=== PATIENT | male | born 1960 | race Caucasian/White ===

== ENCOUNTER 2019-04-19 12:22 | Inpatient (IN) | payer OTHER ==
[~2019-04-19] VITALS: Ht 170.2 cm; Wt 83.9 kg
[2019-04-19] MEDS ORDERED: ASPIRIN 81 MG TAB.CHEW PO ONE (13:00)
[2019-04-19] MEDS ORDERED: NITROGLYCERIN OINT 1 GM PACKET. TP ONE (13:00)
[2019-04-19 13:03] LABS: BASO % 1 % (0-3); EOS # 0.1 x10^3/uL (0.0-0.7); EOS % 2 % (0-3); HEMATOCRIT 46.7 % (39.0-53.0); HEMOGLOBIN 15.8 g/dL (13.0-17.5); LYMPH # 2.1 x10^3/uL (1.0-4.8); LYMPH % 34 % (24-48); MEAN CORPUSCULAR HEMOGLOBIN 31 pg (25-35); MEAN CORPUSCULAR HGB CONC 34 g/dL (31-37); MEAN CORPUSCULAR VOLUME 90 fL (79-100); MONO # 0.6 x10^3/uL (0.0-1.1); MONO % 9 % (0-9); NEUT # 3.3 x10^3uL (1.8-7.7); NEUT % 54 % (31-73); PLATELET COUNT 259 x10^3/uL (140-400); RED BLOOD COUNT 5.17 x10^6/uL (4.30-5.70); RED CELL DISTRIBUTION WIDTH 12.5 % (11.5-14.5); WHITE BLOOD COUNT 6.1 x10^3/uL (4.0-11.0)
--- NOTE | 2019-04-19 13:07 | PHYS DOC ---
Past History Past Medical History: High Cholesterol, Hypertension Past Surgical History: Tonsillectomy Additional Past Surgical Histo: left rotator cuff surgery Smoking: Non-smoker Alcohol Use: None Drug Use: None Adult General Chief Complaint Chief Complaint: CHEST PAIN HPI HPI Patient is a 59-year-old male who presents to the emergency department for evaluation. He states at about 8 AM this morning he began expressing some left- sided chest pain, described as a pressure, which has been constant since onset. The pain does not radiate, and is not exacerbated or alleviated by anything in particular. He has not had any exertional chest pain, pleuritic pain, nausea, vo miting, or diaphoresis. Risk factors include hypertension, hyperlipidemia, and a family history, his father had bypass surgery in his 50s. The patient's HEART score would be a 5, assuming a negative troponin. Review of Systems Review of Systems Constitutional: Denies fever or chills [] Eyes: Denies change in visual acuity, redness, or eye pain [] HENT: Denies nasal congestion or sore throat [] Respiratory: Denies cough or shortness of breath [] Cardiovascular: No additional information not addressed in HPI [] GI: Denies abdominal pain, nausea, vomiting, bloody stools or diarrhea [] : Denies dysuria or hematuria [] Musculoskeletal: Denies back pain or joint pain [] Integument: Denies rash or skin lesions [] Neurologic: Denies headache, focal weakness or sensory changes [] Endocrine: Denies polyuria or polydipsia [] All other systems were reviewed and found to be within normal limits, except as documented in this note. Current Medications Current Medications Current Medications Medications (Trade) Dose Ordered Sig/Rylie Start Time Stop Time Status Last Admin Dose Admin Aspirin (Children'S Aspirin) 324 mg 1X ONCE 04/19/19 13:00 04/19/19 13:01 DC Nitroglycerin (Nitro-Bid Oint) 1 inch 1X ONCE 04/19/19 13:00 04/19/19 13:01 DC Allergies Allergies Allergies Coded Allergies Type Severity Reaction Last Updated Verified No Known Drug Allergies 04/19/19 No Physical Exam Physical Exam PHYSICAL EXAM: CONSTITUTIONAL: Well developed, well nourished HEAD: normocephalic, atraumatic EENT: PERRL, EOMI. Conjunctivae normal color, sclerae non-icteric; moist mucous membranes. NECK: Supple, non-tender; no meningismus. LUNGS: Lungs CTA, breathing even and unlabored. Normal air movement. HEART: Regular rate and rhythm, no murmur CHEST: No deformity; non-tender ABDOMEN: The abdomen is soft, and non-tender, no masses or bruits. EXTREM: Normal ROM; no deformity, no calf tenderness. Normal pulses palpable in all extremities. There is no pedal edema. SKIN: No rash; no diaphoresis NEURO: Alert; normal speech and cognition; CN's grossly intact; strength grossly intact without focal deficit. BACK: No CVA TTP. Current Patient Data Vital Signs Vital Signs Date Time Temp Pulse Resp B/P (MAP) Pulse Ox O2 Delivery O2 Flow Rate FiO2 04/19/19 13:00 67 18 141/85 (103) 96 Room Air 04/19/19 12:29 98.6 Lab Results Laboratory Tests Test 04/19/19 12:30 White Blood Count 6.1 x10^3/uL Red Blood Count 5.17 x10^6/uL Hemoglobin 15.8 g/dL Hematocrit 46.7 % Mean Corpuscular Volume 90 fL Mean Corpuscular Hemoglobin 31 pg Mean Corpuscular Hemoglobin Concent 34 g/dL Red Cell Distribution Width 12.5 % Platelet Count 259 x10^3/uL Neutrophils (%) (Auto) 54 % Lymphocytes (%) (Auto) 34 % Monocytes (%) (Auto) 9 % Eosinophils (%) (Auto) 2 % Basophils (%) (Auto) 1 % Neutrophils # (Auto) 3.3 x10^3uL Lymphocytes # (Auto) 2.1 x10^3/uL Monocytes # (Auto) 0.6 x10^3/uL Eosinophils # (Auto) 0.1 x10^3/uL Basophils # (Auto) 0.0 x10^3/uL D-Dimer (Aylin) 0.62 mg/L Sodium Level 143 mmol/L Potassium Level 4.1 mmol/L Chloride Level 105 mmol/L Carbon Dioxide Level 28 mmol/L Anion Gap 10 Blood Urea Nitrogen 12 mg/dL Creatinine 1.1 mg/dL Estimated GFR (Cockcroft-Gault) 69.0 BUN/Creatinine Ratio 11 Glucose Level 88 mg/dL Calcium Level 9.1 mg/dL Total Bilirubin 0.5 mg/dL Aspartate Amino Transf (AST/SGOT) 22 U/L Alanine Aminotransferase (ALT/SGPT) 44 U/L Alkaline Phosphatase 59 U/L Troponin I Quantitative < 0.017 ng/mL [id number] Natriuretic Peptide 14 pg/mL Total Protein 7.6 g/dL Albumin 4.0 g/dL Albumin/Globulin Ratio 1.1 Current Medications Medications (Trade) Dose Ordered Sig/Rylie Route PRN Reason Start Time Stop Time Status Last Admin Dose Admin Nitroglycerin (Nitro-Bid Oint) 1 inch 1X ONCE TP 04/19/19 13:00 04/19/19 13:01 DC 04/19/19 13:00 Aspirin (Children'S Aspirin) 324 mg 1X ONCE PO 04/19/19 13:00 04/19/19 13:01 DC 04/19/19 13:00 EKG EKG Normal sinus rhythm a rate of 66 beats for minute, normal axis, normal intervals, nonspecific ST/T changes are present.[] [] Radiology/Procedures Radiology/Procedures PROCEDURE: CHEST PA & LATERAL EXAM: Chest, 2 views. HISTORY: Chest pain. COMPARISON: None. FINDINGS: 2 views of the chest are obtained. There is no infiltrate, pleural effusion or pneumothorax. The heart is normal in size. IMPRESSION: No acute pulmonary finding. PROCEDURE: CT ANGIOGRAPHY CHEST CTA OF THE CHEST WITH AND WITHOUT CONTRAST Clinical indications: Chest pain. Elevated d-dimer. Technique: Noncontrast axial localizer was performed. After IV infusion of 75 cc of Omnipaque 300, helical CT scanning of the chest was performed using the CT pulmonary embolism protocol. A coronal MIP reconstruction was generated. PQRS compliance Statement One or more of the following individualized dose reduction techniques were utilized for this study: 1. Automated exposure control 2. Adjustment of the mA and/or kV according to patient size 3. Use of iterative reconstruction technique Comparison: None available. Findings: No pulmonary embolism is evident. No focal aneurysmal dilatation of the thoracic aorta is seen. The heart size and normal and no pericardial effusion is seen. No enlarged thoracic lymphadenopathy is evident. No adrenal mass is seen. There is mild groundglass lung infiltrates bilaterally consistent with atelectasis given the decreased lung volumes and elevation of both hemidiaphragms. There is a nodule of the medial posterior costophrenic angle on the left side which measures 14 mm in size. There is a question of some punctate calcification within it. Therefore, this may represent a granuloma. However this is not certain. Therefore a short-term follow-up chest CT in 3 months will be needed. No lung consolidation is evident. No pleural effusion or pneumothorax is seen. The proximal bronchial tree is patent. No lytic process is seen. No fracture is evident. IMPRESSION: 14 mm lung nodule within the posterior medial costophrenic angle on the left side. Recommend a follow-up chest CT in 3 months. No pulmonary embolism. Course & Med Decision Making Course & Med Decision Making Pertinent Labs and Imaging studies reviewed. (See chart for details) []2:50 PM:The patient's condition remains stable. I spoke with the hospitalist, who accepted the patient to the hospital for further evaluation and treatment. Pt had improvement in pain with NTG. Also discussed importance of outpatient CT f/u and findings, per radiologist recommendation. Dragon Disclaimer Dragon Disclaimer This electronic medical record was generated, in whole or in part, using a voice recognition dictation system. Departure Departure: Impression: Primary Impression: Chest pain Disposition: ADMITTED INPATIENT Admitting Physician: Xioa Worthington Condition: STABLE MIS COHEN MD Apr 19, 2019 13:07
[2019-04-19 13:15] LABS: ALBUMIN/GLOBULIN RATIO 1.1 (1.0-1.7); CALCIUM 9.1 mg/dL (8.5-10.1); CREATININE 1.1 mg/dL (0.7-1.3); POTASSIUM 4.1 mmol/L (3.5-5.1); TOTAL BILIRUBIN 0.5 mg/dL (0.2-1.0); TOTAL PROTEIN 7.6 g/dL (6.4-8.2)
--- NOTE | 2019-04-19 13:16 | RAD ---
EXAM: Chest, 2 views. HISTORY: Chest pain. COMPARISON: None. FINDINGS: 2 views of the chest are obtained. There is no infiltrate, pleural effusion or pneumothorax. The heart is normal in size. IMPRESSION: No acute pulmonary finding. Electronically signed by: Mitzi Vela MD (04/19/2019 1:13 PM) [place] [id number]
[2019-04-19] MEDS ORDERED: IOHEXOL 300 MG/ML 75 ML VIAL. IV ONE (13:45)
--- NOTE | 2019-04-19 14:46 | RAD ---
CTA OF THE CHEST WITH AND WITHOUT CONTRAST Clinical indications: Chest pain. Elevated d-dimer. Technique: Noncontrast axial localizer was performed. After IV infusion of 75 cc of Omnipaque 300, helical CT scanning of the chest was performed using the CT pulmonary embolism protocol. A coronal MIP reconstruction was generated. PQRS compliance Statement One or more of the following individualized dose reduction techniques were utilized for this study: 1. Automated exposure control 2. Adjustment of the mA and/or kV according to patient size 3. Use of iterative reconstruction technique Comparison: None available. Findings: No pulmonary embolism is evident. No focal aneurysmal dilatation of the thoracic aorta is seen. The heart size and normal and no pericardial effusion is seen. No enlarged thoracic lymphadenopathy is evident. No adrenal mass is seen. There is mild groundglass lung infiltrates bilaterally consistent with atelectasis given the decreased lung volumes and elevation of both hemidiaphragms. There is a nodule of the medial posterior costophrenic angle on the left side which measures 14 mm in size. There is a question of some punctate calcification within it. Therefore, this may represent a granuloma. However this is not certain. Therefore a short-term follow-up chest CT in 3 months will be needed. No lung consolidation is evident. No pleural effusion or pneumothorax is seen. The proximal bronchial tree is patent. No lytic process is seen. No fracture is evident. IMPRESSION: 14 mm lung nodule within the posterior medial costophrenic angle on the left side. Recommend a follow-up chest CT in 3 months. No pulmonary embolism. Electronically signed by: Nghia Reese MD (04/19/2019 2:43 PM) [facility]
[2019-04-19 16:01] VITALS: BP 117/71
--- NOTE | 2019-04-19 16:19 | NUR ---
NSG NOTE; ADMISSION ADMIT TO ROOM 111 AT 1550 FROM ED VIA CART ACCOMP BY EMS PERSONNEL C/O LEFT CHEST PAIN SINCE 0800 TODAY-STATES NOW SLIGHTLY SORE SON WAS CALLED BY PT TO NOTIFY OF ADMISSION
[2019-04-19] MEDS ORDERED: SIMV40TA18 PO (16:46)
[2019-04-19] MEDS ORDERED: LISI-334 PO (16:46)
--- NOTE | 2019-04-19 17:50 | HP ---
ADMIT DATE: 04/19/2019 HISTORY OF PRESENT ILLNESS: The patient is a 59-year-old male patient who came to the Emergency Room with complaint of chest pain. He stated that his chest pain started around 8:00 a.m. this morning, mostly left-sided chest pain, described as a pressure, has been constant since onset. The pain does not radiate anywhere, not exacerbated or alleviated by anything. In particular, he has not had any exertional chest pain. Denied any nausea, vomiting, diaphoresis or shortness of breath. He apparently has had multiple risk factors for coronary artery disease and therefore he was admitted for further evaluation. His first set of cardiac enzyme was less than 0.017. The EKG also showed that he in sinus rhythm at a rate of 66 beats per minute, normal axis, normal intervals, nonspecific ST-T changes and therefore he was admitted to do 2 more sets of cardiac enzymes, check his fasting lipid profile and consult the cardiology team. PAST MEDICAL HISTORY: Significant for hypertension and hyperlipidemia. PAST SURGICAL HISTORY: Significant for left rotator cuff surgery, has also colonoscopy done 3 times with polypectomy. ALLERGIES: He has no known drug allergies. MEDICATIONS: He is currently on following medications: He is on simvastatin 40 mg at bedtime and lisinopril 20 mg once a day. FAMILY HISTORY: He has one sister older and apparently healthy. His father at the age of 67 because of stroke; however, he has had coronary artery bypass graft surgery in his 50s. His mother in her 50s because of breast cancer. SOCIAL HISTORY: , has 4 children, 1 son and his live with him. He never smoked, does not drink alcohol. 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 REVIEW OF SYSTEMS: The patient denied any blurring of vision, cataract, glaucoma or macular degeneration. Denied any earache, tinnitus or sensorineural deafness. Denied any nosebleeds, stuffy nose or postnasal drip. Denied any sore throat, sore tongue, toothache, hoarseness of voice or difficulty swallowing. PHYSICAL EXAMINATION: GENERAL: On examining him, he looked well and was clearly in no apparent respiratory distress. No pallor, jaundice, cyanosis or thyromegaly. No jugular venous distention. No limb edema. VITAL SIGNS: His heart rate was 63, blood pressure was 141/85, temperature was 98.6, respiratory rate was 18 and oxygen saturation was 97%. HEAD, EYES, EARS, NOSE AND THROAT: Showed normocephalic, atraumatic. NECK: Supple. HEART: Showed normal first and second heart sounds with no gallop, rub or murmur. CHEST: Clear to auscultation. No crepitation or rhonchi. ABDOMEN: Distended, soft, nontender. No guarding or rigidity. No organomegaly. All hernial orifice intact. Bowel sounds normal. NEUROLOGIC: He was awake, alert, responding appropriately. All cranial nerves intact. EXTREMITIES: He moves extremities without difficulty. LABORATORY DATA: His lab work on arrival showed a serum sodium 143, potassium 4.1, chloride 105, bicarbonate 28, anion gap of 10, BUN 12, creatinine 1.1, estimated GFR was 69 mL per minute. His glucose was 88, calcium was 9.1. Total bilirubin, AST, ALT, alkaline phosphatase were normal. His BNP was only 14, total protein was 7.6, albumin was 4. His first set of cardiac enzymes showed troponin to be less than 0.017. His white cell count was 6000, hemoglobin 15.8, hematocrit 46.7, MCV 90 and platelet count 259,000. His D-dimer was slightly elevated at 0.62. IMAGING STUDIES: His 2-view chest x-ray showed, there is no infiltrate, pleural effusion or pneumothorax. The heart is normal in size. CT angio of the chest showed that the patient has 14 mm lung nodule within the posterior medial costophrenic angle on the left side, but there is no pulmonary embolism is evident. No focal aneurysmal dilatation of thoracic aorta is seen. The heart size is normal. No pericardial effusion is seen. No enlarged thoracic lymphadenopathy is evident. No adrenal masses seen. There is mild ground glass lung infiltrates bilaterally consistent with atelectasis given the decreased lung volumes with elevation of both hemidiaphragms. PLAN: The patient was admitted to do 2 more sets of cardiac enzymes, check his fasting lipid profile, consult the Cardiology tomorrow. SCOTTY LARA MD DR: KYRA/dahlia JOB#: [id number] / [id number]
[2019-04-19 19:25] VITALS: BP 113/61
[2019-04-19] MEDS ORDERED: SIMVASTATIN 40 MG TABLET. PO SCH (21:00)
[2019-04-19] MEDS ORDERED: LISINOPRIL 20 MG TABLET PO SCH (21:00)
[2019-04-19 22:14] VITALS: BP 100/60
[2019-04-20 05:41] VITALS: BP 108/64
--- NOTE | 2019-04-20 08:19 | EKG ---
[address] [address] Test Date: 2019-04-19 Test Time: 12:31:41 Pat Name: LEWIS HO Department: Room: 111 A Gender: M Jockey Agent: : [id number] Requested By: MIS COHEN Order Number: [id number] Reading MD: Mike Lopez MD Measurements Intervals [place] Rate: 66 P: 38 SD: 140 QRS: 0 QRSD: 76 T: 18 QT: 356 QTc: 375 Interpretive Statements SINUS RHYTHM Electronically Signed On 04-20-2019 13:30:17 [employer] COMPUT[employer] CONSULTANT by Mike Lopez MD
[2019-04-20 11:00] VITALS: BP 134/83
[2019-04-20 13:12] LABS: THYROID STIM HORMONE (TSH) 1.848 uIU/mL (0.358-3.740)
--- NOTE | 2019-04-20 13:40 | NUR ---
PT cp has resolved. Talked with DR Walker today he will not be in until 5pm. He looked over chart and is ok with patient discharging if he does not want to wait. Dr Worthington will see patient and dc today. PT to follow up with cardiology next week and might have to get referral from [facility]. Breanna SENIOR SHAREPOINT DEVELOPER CMSRN [id number]-
--- NOTE | 2019-04-20 14:50 | NUR ---
pt dc to home. PT is able to verbalize understanding of dc instructions and follow up. PT to have OP stress test and echo in the office next week, PT to have follow up CT in 3 months. Latosha GROSS
--- NOTE | 2019-04-20 19:55 | DS ---
DATE OF DISCHARGE: 04/20/2019 HISTORY OF PRESENT ILLNESS: The patient is a 59-year-old male patient who was admitted with chest pain and the pain is mostly in the left side. The chest pain described as a pressure has been constant since onset. The pain does not radiate, not exacerbated or alleviated by anything. He denied any exertional chest pain, denied any nausea, vomiting, diaphoresis, shortness of breath. He apparently has multiple risk factors for coronary artery disease and therefore, he was admitted and has had 3 sets of cardiac enzyme, all were less than 0.017 and therefore, acute myocardial infarction was ruled out. His fasting lipid profile showed serum triglycerides to be 154, total cholesterol 191, LDL cholesterol 124, VLDL was 30, and HDL was 37, the ratio was 5. TSH was normal at 1.848 and therefore, a decision was made to discharge him home to follow with the Cardiology team as an outpatient for outpatient stress testing. PHYSICAL EXAMINATION: GENERAL: When I saw him this afternoon, he looked well and was clearly in no apparent respiratory distress. No pallor, jaundice, cyanosis or thyromegaly. No jugular venous distention. No limb edema. VITAL SIGNS: His heart rate was 53, blood pressure was 134/83, temperature was 98.2, respiratory rate was 18 and oxygen saturation was 98%. The rest of clinical exam is stable. ASSESSMENT: Chest pain, atypical, myocardial infarction ruled out. The patient has multiple risk factors for coronary artery disease including hypertension, hyperlipidemia. His father had coronary artery disease in his 50s. He was discharged to continue on his current medications and to follow with Cardiology team. SCOTTY LARA MD DR: KYRA/dahlia JOB#: [id number] / [id number]
== END 2019-04-20 15:00 | disposition home or self-care (01) | DRG 206 ==
LOC: ER 12:23 → 1 SOUTH 15:09
PROVIDERS: ADMIT Internal Medicine; ATTEND Internal Medicine
DX: M94.0 Chondrocostal junction syndrome [Tietze] (principal); E78.00 Pure hypercholesterolemia, unspecified; E78.5 Hyperlipidemia, unspecified; I10 Essential (primary) hypertension; Z80.3 Family history of malignant neoplasm of breast; Z82.3 Family history of stroke; Z82.49 Family history of ischemic heart disease and other diseases of the circulatory system; Z90.49 Acquired absence of other specified parts of digestive tract
CPT/HCPCS: 36415; 71046; 71275; 80053; 80061; 83880; 84443; 84484; 85025; 85379; 93005; Q9967; 99285-25

== ENCOUNTER → 2019-09-24 | Outpatient (CLI) | payer OTHER ==
[~2019-09-24] MED LIST: LISI-334 PO; SIMV40TA18 PO
--- NOTE | 2019-09-24 08:49 | RAD ---
CT CHEST WO CONTRAST Indication: Nodule Technique: Noncontrast CT imaging was performed of the chest, multiplanar reconstruction images submitted. One or more of the following individualized dose reduction techniques were utilized for this examination: 1. Automated exposure control 2. Adjustment of the mA and/or kV according to patient size 3. Use of iterative reconstruction technique. Comparison: April 19, 2019 Findings: There is again 13 mm left lower lobe nodule best seen images to 15 series 2 similar in size and morphology. There is again some questionable subtle internal calcification. No new lung nodularity, pleural pericardial fluid, pneumothorax, or infiltrate is identified. There is some coronary calcification. Thoracic aortic caliber is within normal limits. There is no abnormality of the thyroid gland. There are multiple small axillary nodes bilaterally as seen previously. Facet degenerative change contributes to fairly severe narrowing of the left T10-11 neural foramen. IMPRESSION: 1. There is stable left lower lobe pulmonary nodule, no new lung nodularity. 12 month follow-up is recommended as per revised Fleischner guidelines. 2. There is again some coronary calcification. Electronically signed by: Florentino Quigley MD (09/24/2019 8:46 AM) [id number]
== END | disposition home or self-care (01) ==
LOC: CT 07:47
DX: R91.1 Solitary pulmonary nodule (principal); I25.10 Atherosclerotic heart disease of native coronary artery without angina pectoris; M47.814 Spondylosis without myelopathy or radiculopathy, thoracic region; M48.04 Spinal stenosis, thoracic region
CPT/HCPCS: 71250